=== PATIENT | female | born 1990 | race Two or more races ===

== ENCOUNTER 2020-10-21 19:44 | Emergency (ER) | payer MEDICARE, MEDICAID, SELFPAY ==
--- NOTE | ~2020-10-21 | XR_ITS ---
EXAMINATION: XR KNEE, LEFT CLINICAL INFORMATION: Pain post fall COMPARISON: None TECHNIQUE: Four views of the left knee. FINDINGS: Small joint effusion. Postoperative changes with plate and screw fixation of the lateral tibial plateau. I do not appreciate any evidence for acute fracture or dislocation. No evidence for hardware failure. There is osteopenia about the knee but no underlying acute bony lesion. Surrounding soft tissues unremarkable. XR/XR knee LT 4V IMPRESSION: Prior ORIF. No acute fracture or hardware failure.
[2020-10-21 20:52] VITALS: BP 151/80; PULSE 80; RESP 16; TEMP 36.6; O2SAT 97; BMI 39.0
--- NOTE | 2020-10-21 21:36 | PC.NURSE ---
no swelling noted. limping to bed emc4. ice applied. no deformity
[2020-10-21] MEDS: Ibuprofen 800 MG TABLET PO (21:51)
--- NOTE | 2020-10-21 21:51 | ED.LOWEXIN ---
HPI - Extremity Injury (Lower) General Chief Complaint: Extremity Injury, Lower Stated Complaint: leg inj Source: patient Mode of arrival: ambulatory Limitations: no limitations History of Present Illness HPI Narrative: Patient presents to ED for left knee pain. Patient states last night while in the club she tripped and fell onto her left knee. Patient states only her left knee hit the ground. Patient states rest of the body did not hit the ground. Patient denies hitting head or loss of consciousness. Patient wanted to be evaluated due to history of knee surgery and hardware. Related Data Previous Rx's Medication Instructions Recorded cyclobenzaprine 10 mg PO TID PRN #18 tab 10/21/20 naproxen 500 mg PO BID PRN #20 tab 10/21/20 Allergies Allergy/AdvReac Type Severity Reaction Status Date / Time No Known Allergies Allergy Verified 10/21/20 20:57 Review of Systems Review of Systems: Yes all other systems are reviewed and are negative Constitutional: Constitutional: Reports as per HPI and Reports no additional constitutional complaints Eyes: Eyes: Reports as per HPI and Reports no additional eye complaints ENT: Reports system reviewed and no additional complaints, except as documented and Reports as per HPI Cardiovascular: Cardiovascular: Reports as per HPI and Reports no additional cardiovascular complaints Respiratory: Respiratory: Reports as per HPI and Reports no additional respiratory complaints Gastrointestinal: Gastrointestinal: Reports as per HPI and Reports no additional gastrointestinal complaints Genitourinary: Genitourinary: Reports no additional female genitourinary complaints and Reports as per HPI Musculoskeletal: Musculoskeletal: Reports no additional musculoskeletal complaints and Reports as per HPI Comments: Left knee pain Neurologic: Reports system reviewed and no additional complaints, except as documented and Reports as per HPI [facility] Past Medical History Medical History (Updated 10/22/20 @ 00:01 by Background [place]) No known health problems Social History Social History Advance Directives: No Advance Directives Information Provided: No Physical Exam Vital Signs: Vital Signs: Last Vital Signs Temp 98 F 10/21/20 20:52 Pulse 80 10/21/20 20:52 Resp 16 10/21/20 20:52 BP 151/80 H 10/21/20 20:52 Pulse Ox 97 10/21/20 20:52 Body Mass Index 39.0 Const: General: cooperative, healthy appearing, comfortable, no acute distress, well developed, alert and awake Orientation/consciousness: patient oriented x3 HENMT: Head: Yes normal to inspection, Yes No palpable skull fracture present, Yes normocephalic, Yes atraumatic, No abrasion, No Gentile's sign, No contusion, No cranial bruits, No hematoma, No laceration, No occipital foramen tenderness, No palpable skull fracture, No raccoon eyes, No scalp lesion, No scalp tenderness, No Temporal artery tenderness present and No periorbital ecchymosis Eyes: General: appearance normal, both eyes and all related structures Neck: Neck: Yes normal visual inspection, Yes full ROM, Yes no lymphadenopathy, Yes no meningeal signs, Yes trachea midline, Yes supple and No tender Chest: Chest palpation & inspection: normal inspection of the chest and normal palpation of entire chest wall Resp: Effort & Inspection: normal respiratory effort and able to speak in complete sentences Auscultation: clear to auscultation bilaterally Cardio: Jugular venous distension: no JVD Heart sounds: S1 normal heart sound present and S2 normal heart sound present GI: Inspection: Yes normal to inspection and No abdominal wall ecchymosis Palpation (GI): Soft to palpation, not firm, nontender, no guarding and not rigid : General: No CVA tenderness and Yes no CVA tenderness Back/Spine/Pelvis: Back: no CVA tenderness, No CVA tenderness and No back tenderness Skin: General skin exam: no rashes or lesions noted and elasticity normal Neuro: General: patient oriented x3, no meningeal signs and CN's II-XI intact bilaterally Cranial nerves: Yes CN's II-XII intact bilaterally Extrem: Other: Left lower extremity: Positive for knee tenderness on palpation. Negative for deformity of the knee. Negative for swelling, ecchymosis, deformity, of legs, calf, ankle, or foot. Vascular/Neuro/motor exam of left upper extremity intact. All extremities negative for any signs of trauma. General: Yes normal to inspection and Yes full ROM Psych: Appearance: grossly normal, well kempt and not disheveled Course Course Course Narrative: Sent for left knee x-ray. Reevaluation(s) Reevaluation #1: Left knee negative for any fractures. Patient placed in Hema wrap and discharged with Motrin. MDM - Extremity Injury (Lower) MDM Narrative Medical decision making narrative: Knee contusion Discharge Plan Discharge Clinical Impression: Contusion of knee Patient Disposition: Home, Self-Care Instructions: Contusion in Adults (ED), Knee Pain (ED) Additional Instructions: Return to the ED immediately for any swelling of lower extremity, redness of knee, fever, chills, chest pain, shortness of breath, calf pain, inability to walk, or any other concerning symptoms. Follow-up with PCP Prescriptions: New naproxen 500 mg tablet 500 mg PO BID PRN (Reason: pain) Qty: 20 RF: 0 cyclobenzaprine 10 mg tablet 10 mg PO TID PRN (Reason: pain) Qty: 18 RF: 0 Stand Alone Forms: Work/School Release Interventions: ED Discharge Assessment Last Done: 10/21/20 22:53 Discharge Date/Time: 10/21/20 22:55 Print Language: [place]
== END 2020-10-21 22:55 | disposition home or self-care (01) ==
PROVIDERS: Emergency Provider Emergency Medicine
DX: S80.02XA Contusion of left knee, initial encounter (principal); W01.0XXA Fall on same level from slipping, tripping and stumbling without subsequent striking against object, initial encounter; M25.462 Effusion, left knee; Y93.89 Activity, other specified; Y92.511 Restaurant or cafe as the place of occurrence of the external cause; Y99.8 Other external cause status; Z96.652 Presence of left artificial knee joint
CPT/HCPCS: 73564; 99283

== ENCOUNTER 2020-12-08 08:57 | Emergency (ER) | payer MEDICARE, MEDICAID, SELFPAY ==
[2020-12-08 09:27] VITALS: BP 126/79; PULSE 90; RESP 18; TEMP 37; O2SAT 99; BMI 42.0
== END 2020-12-08 11:03 | disposition left against medical advice (07) ==
PROVIDERS: Emergency Provider Emergency Medicine; PCP Internal Medicine
DX: R11.2 Nausea with vomiting, unspecified (principal); R19.7 Diarrhea, unspecified; R53.1 Weakness
CPT/HCPCS: 99282

== ENCOUNTER → 2023-04-04 08:59 | Outpatient (BNVA) | payer OTHER, SELFPAY | PROVIDERS: PCP Internal Medicine; Visit Provider Physician Assistant Medical | DX: S63.502A Unspecified sprain of left wrist, initial encounter (principal); X50.1XXA Overexertion from prolonged static or awkward postures, initial encounter | CPT/HCPCS: 29125; 99203 ==

== ENCOUNTER → 2023-04-07 09:19 | Outpatient (BNVA) | payer OTHER, SELFPAY | PROVIDERS: PCP Internal Medicine; Visit Provider Physician Assistant Medical | DX: S63.502A Unspecified sprain of left wrist, initial encounter (principal); X50.1XXA Overexertion from prolonged static or awkward postures, initial encounter | CPT/HCPCS: 99213 ==

== ENCOUNTER → 2023-04-10 09:33 | Outpatient (BNVA) | payer OTHER, SELFPAY | PROVIDERS: PCP Internal Medicine; Visit Provider Physician Assistant Medical | DX: S63.502D Unspecified sprain of left wrist, subsequent encounter (principal); X50.1XXD Overexertion from prolonged static or awkward postures, subsequent encounter | CPT/HCPCS: 99213 ==

== ENCOUNTER → 2023-04-13 13:15 | Outpatient (BNVA) | payer OTHER, SELFPAY | PROVIDERS: PCP Internal Medicine; Visit Provider Physician Assistant Medical | DX: S63.502D Unspecified sprain of left wrist, subsequent encounter (principal); X50.1XXD Overexertion from prolonged static or awkward postures, subsequent encounter | CPT/HCPCS: 99213 ==

== ENCOUNTER 2023-04-24 09:02 | Outpatient (RCR) | payer OTHER, MEDICAID, SELFPAY ==
--- NOTE | 2023-04-24 10:56 | MHC.OT.EP ---
[address] [phone] Occupational Therapy Plan of Care Patient Name: Malini Oswald Date of Evaluation: 04/24/23 Diagnosis: Left wrisr hyper flexion sprain Pain Location: 0-5 left ulnar hand Achy Pain Score: 5 Pain Scale Used: Aggravating Factors: Static gripping.. 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 Pt had an XR the following day and was issued a wrist immobilizer and was taken out of work for 2 weeks. Pt is back at work and minimizing use of her left hand due to fear of dropping tools from her left hand and occasional achy with extensive use Today pt presents with decreased left wrist ulnar deviation and decreased left news department intern strength. Pain in low. Pt will benefit from a short course in OT to regain left news department intern strength and hand function Frequency and Duration: The patient will be seen 2x , 2 wks Short Term Goals: Pt will demonstrate indep with HEP Left wrist ulnar deviation to 25 deg Left news department intern to 60 lb Report increased ease with left hand use with daily activities Mcfp Goals: Same as above Treatment Plan: Therapeutic Exercise Therapeutic Activity Home Exercise Program Patient Education Electronically Signed By: Damaris Renee OT CHT CLT Please Sign and return to therapist. Thank you once again for your referral.
--- NOTE | 2023-05-04 13:11 | MHC.OT.DC ---
[address] [phone] F: [phone] Occupational Therapy Discharge Note Patient Name: Malini Oswald Provider: Bridgette Nielsen Diagnosis: Left wrisr hyper flexion sprain Date of Surgery: Date of Evaluation: 04/24/23 Date of Discharge: 05/04/23 Treatments to Date: 1 Cancellations to Date: 1 No Shows to Date: 2 Discharge Status: Recommend MD Follow-up Visit Non-compliance Discharge Summary: Pt seen for eval only. Pleas see eval for details Electronically Signed By: Damaris Renee OT CHT CLT Reviewed/agree with student documentation: Therapist: Please Sign and return to therapist, thank you for your referral.
== END 2023-05-04 13:12 | disposition home or self-care (01) ==
LOC: HO.OT 09:02
PROVIDERS: Visit Provider Physician Assistant Medical
DX: R60.0 Localized edema (principal); S63.502D Unspecified sprain of left wrist, subsequent encounter
CPT/HCPCS: 97110; 97165